=== PATIENT | male | born 1980 | race Caucasian/White ===

== ENCOUNTER 2020-11-07 19:23 | Emergency (ER) | payer OTHER | END 2020-11-07 20:20 | disposition home or self-care (01) | LOC: FER 19:23 | DX: S39.012A Strain of muscle, fascia and tendon of lower back, initial encounter (principal) | CPT/HCPCS: 99282-25 ==

== ENCOUNTER 2021-02-10 23:38 | Emergency (ER) | payer OTHER ==
[2021-02-10 23:44] VITALS: BP 139/95; PULSE 63; TEMP 97.8; BMI 25.7
[2021-02-10] MEDS ORDERED: IBUPROFEN 400 MG TABLET (FP) PO ONE ×2 (23:56→23:57)
== END 2021-02-11 00:02 | disposition home or self-care (01) ==
LOC: FER 23:38
DX: S39.012A Strain of muscle, fascia and tendon of lower back, initial encounter (principal); S20.211A Contusion of right front wall of thorax, initial encounter
CPT/HCPCS: 99283-25

== ENCOUNTER 2023-02-25 22:34 | Emergency (ER) | payer OTHER ==
[2023-02-25 22:41] VITALS: BP 131/79; PULSE 67; RESP 16; TEMP 98.8; BMI 25.7
== END 2023-02-25 23:19 | disposition home or self-care (01) ==
LOC: FER 22:34
DX: S93.401A Sprain of unspecified ligament of right ankle, initial encounter (principal); X50.9XXA Other and unspecified overexertion or strenuous movements or postures, initial encounter
CPT/HCPCS: 73610-TC-RT-FY; 99283-25